=== PATIENT | female | born 1940 | race Caucasian/White ===

== ENCOUNTER 2016-05-31 18:56 | Emergency (ER) | payer MEDICARE, OTHER ==
[~2016-05-31] VITALS: Ht 157.5 cm; Wt 60.0 kg
[~2016-05-31 18:56] MED LIST: ALBU1AER INH; AMOX875T PO; ASPI81TA82 PO; BENZ100 PO; BUME1TAB PO; E-10CAP PO; KLOR20TA6 PO; OMEP20TA PO; PRED20 PO; PROP1CAP PO; [UNRECOGNIZED DRUG - CODE] PO
[2016-05-31 19:04] VITALS: BP 135/58; PULSE 77; RESP 18; TEMP 97.7; O2SAT 99
[2016-05-31] MEDS ORDERED: OMEP20TA PO (19:14)
[2016-05-31] MEDS ORDERED: POTA-163 PO (19:14)
[2016-05-31] MEDS ORDERED: BUME1TAB PO (19:14)
[2016-05-31] MEDS ORDERED: ASPI81CH37 CHEW (19:14)
[2016-05-31] MEDS ORDERED: [UNRECOGNIZED DRUG - CODE] PO (19:14)
[2016-05-31] MEDS ORDERED: PROP1CAP PO (19:14)
[2016-05-31] MEDS ORDERED: VITA400C2 PO (19:14)
--- NOTE | 2016-05-31 19:15 | PD ---
HPI Chief Complaint: Injury Time Seen by Provider: 19:15 Travel History International Travel<30 days: No Contact w/Intl Traveler<30days: No Traveled to known affect area: No History of Present Illness HPI 75-year-old right hand dominant female presents to the ED for evaluation of 7/ 10 left wrist pain. Onset after fall onto outstretched arm onto cement pavers today at approximately 1 PM. Pain is exacerbated by attempted range of motion. She states that initially the pain was not this bad but has worsened over time. She denies numbness or weakness. She denies hitting her head or loss of consciousness. Denies other somatic complaints. PFSH Past Medical History Hypertension: Yes Past Surgical History Hysterectomy: Yes Social History Alcohol Use: No Tobacco Use: Yes Substance Use: No Allergies-Medications (Allergen,Severity, Reaction): Coded Allergies: Codeine (Verified Allergy, Severe, Anaphylaxis, 05/31/16) Sulfa (Verified Allergy, Severe, Anaphylaxis, 05/31/16) Reported Meds & Prescriptions Reported Meds & Active Scripts Active Tramadol (Tramadol HCl) 50 Mg Tab 50 Mg PO Q6H PRN Reported Innopran XL 24 HR (Propranolol ER 24 HR) 80 Mg Cap 80 Mg PO DAILY Vitamin E 400 Unit Cap 800 Units PO DAILY Potassium Chloride ER (Potassium Chloride) 20 Meq Tab 20 Meq PO DAILY Omeprazole 20 Mg Tab 20 Mg PO DAILY Bumetanide 1 Mg Tab 1 Mg PO DAILY Sular (Nisoldipine) 17 Mg Tab 17 Mg PO DAILY Aspirin Low Dose (Aspirin) 81 Mg Chew 81 Mg CHEW DAILY Review of Systems Except as stated in HPI: all other systems reviewed are Neg Physical Exam Narrative GENERAL: Well-nourished, well-developed elderly white female in no acute distress. SKIN: Focused skin assessment warm/dry. No abrasion or ecchymosis noted. HEAD: Normocephalic. EYES: No scleral icterus. No injection or drainage. NECK: Supple, trachea midline. No JVD or lymphadenopathy. CARDIOVASCULAR: Regular rate and rhythm without murmurs, gallops, or rubs. RESPIRATORY: Breath sounds equal bilaterally. No accessory muscle use. GASTROINTESTINAL: Abdomen soft, non-tender, nondistended. MUSCULOSKELETAL: No cyanosis, or edema. FOCUSED LEFT UPPER EXTREMITY EXAM: 2+ radial pulse. Squeeze test positive. Tender to palpation the radial and ulnar head, positive snuffbox tenderness. Patient is guarding the wrist, only moves with the help of the right hand. ROM testing deferred 2/2 pain. She is able to weakly flex the fingers. Sensation intact to light touch distally. Cap refill less than 2 seconds. BACK: Nontender without obvious deformity. No CVA tenderness. Data Data Last Documented VS Vital Signs Date Time Temp Pulse Resp B/P Pulse Ox O2 Delivery O2 Flow Rate FiO2 05/31/16 19:04 97.7 77 18 135/58 99 Orders Wrist, Complete ([id number]) (05/31/16 19:07) Ice/Cold Pack (05/31/16 19:07) Acetamin-Hydrocod 325-5 Mg ([place] 5-325 (05/31/16 19:45) Ct Wrist W/O Contrast (05/31/16 ) Splint Or Brace Apply/Monitor (05/31/16 20:36) MDM Medical Decision Making Medical Screen Exam Complete: Yes Emergency Medical Condition: Yes Differential Diagnosis Distal radius fracture versus distal ulnar fracture versus scaphoid fracture versus sprain versus contusion versus other Narrative Course 75-year-old right hand dominant female presents to the ED for evaluation of 7 10 left wrist pain. Onset after fall onto outstretched arm onto cement pavers today at approximately 1 PM. Pain is exacerbated by attempted range of motion. She states that initially the pain was not this bad but has worsened over time. She denies numbness or weakness. She denies hitting her head or loss of consciousness. Vitals reviewed. Physical exam reveals an elderly white female in no acute distress. She is guarding the left wrist. 2+ radial pulse. Squeeze test positive. Tender to palpation the radial and ulnar head, positive snuffbox tenderness. ROM testing deferred 2/2 pain. She is able to weakly flex the fingers. Neurovascularly intact. Patient was administered 5 mg Lortab by mouth. X-ray reveals no acute findings per radiology read. However, given the patient's extreme tenderness and guarding I feel that a CT is warranted. CT reveals avulsion fracture of the scaphoid. The patient was placed in a thumb spica splint and sling. She states that she lives in [place] and elective follow-up with an orthopedist there. She was provided a brief course of tramadol. Her radiological results were provided on a CD. She is instructed to rest, ice, elevate the extremity, follow up with her orthopedist on Thursday. She was cautioned not to remove the splint or drive while taking tramadol. She indicated understanding of the instructions and is agreeable to the care plan. She is stable and discharged home. Diagnosis Primary Impression: Fracture of scaphoid of left wrist Qualified Code: S62.002A - Closed nondisplaced fracture of scaphoid of left wrist, unspecified portion of scaphoid, initial encounter Referrals: Orthopedist Patient Instructions: General Instructions, Wrist Fracture in Adults (ED) Additional Instructions: Rest, ice, elevate the extremity. Apply ice no longer than 10-15 minutes per hour a few times a day. Tylenol or ibuprofen as needed for pain 136. Tramadol as needed for pain greater than 6 on the pain scale. Do not remove the splint for any reason. Follow-up with your orthopedist as discussed. Return to the ED for any urgent or emergent medical condition. Med/Other Pt SpecificInfo: Prescription(s) given Scripts Tramadol 50 Mg Tab50 Mg PO Q6H PRN (PAIN) #12 TAB Ref 0 Prov:Rianna Perez MD 05/31/16 Disposition: 01 DISCHARGE HOME Condition: Stable Shena De La Cruz May 31, 2016 19:15
--- NOTE | 2016-05-31 19:36 | RADHPO ---
EXAM DATE/TIME: 05/31/2016 19:10 [facility] COMPARISON: No previous studies available for comparison. INDICATIONS : Left wrist pain post fall today. MEDICAL HISTORY : None. SURGICAL HISTORY : None. ENCOUNTER: Initial ACUITY: 1 day PAIN SCORE: 8/10 LOCATION: Left wrist. FINDINGS: Three view examination of the left wrist demonstrates no soft tissue swelling, dislocation, or fractu re. The carpal bones are in normal alignment. The joint spaces are maintained. Bony mineralization is normal. CONCLUSION: 1. No acute findings. Mild osteoarthritis of the left wrist. Accessory ossicle at the ulna styloid. John Garcia MD on May 31, 2016 at 19:32 Board Certified Radiologist. This report was verified electronically.
[2016-05-31] MEDS ORDERED: ACETAMINOPHEN/HYDROcodone 325 MG/5 MG TAB PO ONE (19:45)
--- NOTE | 2016-05-31 20:31 | RADHPO ---
EXAM DATE/TIME: 05/31/2016 19:58 [facility] COMPARISON: No previous studies available for comparison. INDICATIONS : Fall. Left wrist pain. Evaluate for fracture. RADIATION DOSE: 5.91 CTDIvol (mGy) MEDICAL HISTORY : None SURGICAL HISTORY : None. ENCOUNTER: Initial ACUITY: 1 day PAIN SCALE: 8/10 LOCATION: Left wrist TECHNIQUE: Volumetric scanning of the wrist was performed. Using automated exposure control and adjustment of t he mA and/or kV according to patient size, radiation dose was kept as low as reasonably achievable to obtain optimal diagnostic quality images. FINDINGS: There is a mildly displaced avulsion fracture of the lateral aspect of the scaphoid. No other carpal bone fractures. Normal alignment. Accessory ossicle at ulnar styloid. CONCLUSION: 1. Small avulsion fracture of the distal scaphoid with minimal displacement. No other fracture is agustin ntified. John Garcia MD on May 31, 2016 at 20:23 Board Certified Radiologist. This report was verified electronically.
[2016-05-31] MEDS ORDERED: TRAM50TA PO (20:46)
== END 2016-05-31 21:05 | disposition home or self-care (01) ==
LOC: PHEFT 18:56
DX: S62.002A Unspecified fracture of navicular [scaphoid] bone of left wrist, initial encounter for closed fracture (principal); I10 Essential (primary) hypertension; Z72.0 Tobacco use; W18.39XA Other fall on same level, initial encounter
CPT/HCPCS: 73110; 73200; 99284; L3808